=== PATIENT | male | born 1970 | race Two or more races ===

== ENCOUNTER → 2018-01-16 | Emergency (ER) | payer OTHER ==
[~2018-01-16] VITALS: Ht 177.8 cm; Wt 146.5 kg
[~2018-01-16] MED LIST: BUTALB-ACETAMI1 EACH PO; CIPRO500 MG PO
== END | disposition home or self-care (01) ==
LOC: ER 00:59
DX: G43.909 Migraine, unspecified, not intractable, without status migrainosus (principal); N39.0 Urinary tract infection, site not specified

== ENCOUNTER → 2018-01-27 | Emergency (ER) | payer OTHER ==
[~2018-01-27] VITALS: Ht 177.8 cm; Wt 145.1 kg
== END | disposition home or self-care (01) ==
LOC: ER 11:51
DX: N30.80 Other cystitis without hematuria (principal)